=== PATIENT | male | born 1990 | race American Indian/Alaskan Native ===

== ENCOUNTER 2019-02-03 22:25 | Emergency (ER) | payer OTHER, MEDICAID ==
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
[2019-02-04 02:14] VITALS: BP 134/84; PULSE 70; RESP 20; TEMP 98; O2SAT 96
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
--- NOTE | 2019-02-07 12:50 | CARD ---
APPROVED REPORT Date of service: 02/04/2019 EKG Measurement Heart [id number] <Conclusion> Sinus bradycardia Voltage criteria for left ventricular hypertrophy Early repolarization changes. Abnormal ECG
== END 2019-02-04 02:20 | disposition home or self-care (01) ==
LOC: C.ER 22:25
DX: S16.1XXA Strain of muscle, fascia and tendon at neck level, initial encounter (principal); V89.2XXA Person injured in unspecified motor-vehicle accident, traffic, initial encounter